=== PATIENT | male | born 1995 | race Caucasian/White ===

== ENCOUNTER 2019-02-01 23:52 | Emergency (ER) | payer OTHER ==
[~2019-02-01] VITALS: Ht 175.3 cm; Wt 75.0 kg
[2019-02-02 02:00] VITALS: BP 118/72
== END 2019-02-02 02:15 | disposition short-term general hospital (02) | DRG 156 ==
LOC: ED 23:52
DX: S01.312A Laceration without foreign body of left ear, initial encounter (principal); S21.212A Laceration without foreign body of left back wall of thorax without penetration into thoracic cavity, initial encounter; X99.9XXA Assault by unspecified sharp object, initial encounter; Y92.149 Unspecified place in prison as the place of occurrence of the external cause